=== PATIENT | male | born 1985 | race Caucasian/White ===

== ENCOUNTER 2022-02-11 09:59 | Outpatient (CLI) | payer OTHER, SELFPAY ==
--- NOTE | ~2022-02-11 | US_ITS ---
EXAMINATION: US right upper quadrant DATE: 02/11/2022 11:04 INDICATION: ELEVATED LIVER ENZYMES, dyspepsia TECHNIQUE: Multiple grayscale and Doppler ultrasound images of the right upper quadrant were obtained . COMPARISON: CT abdomen pelvis 07/03/2005, images only. FINDINGS: Pancreas obscured. The liver is normal with normal echogenicity and echotexture. No surface nodularity. Normal hepatopetal flow in the main portal vein. The gallbladder is normal with no abnor mal wall thickening, pericholecystic fluid or stones. The common bile duct measures 2 mm. There was n o sonographic Ramirez sign. IMPRESSION: Normal right upper quadrant ultrasound findings. Reviewed, dictated and finalized at location K. [employer] [employer]
== END 2022-02-11 10:00 | disposition home or self-care (01) ==
LOC: CHSIMG 10:03
PROVIDERS: PCP Internal Medicine; Visit Provider Internal Medicine
DX: R94.5 Abnormal results of liver function studies (principal)
CPT/HCPCS: 76705